=== PATIENT | female | born 1990 | race Caucasian/White ===

== ENCOUNTER 2018-05-07 17:20 | Emergency (ER) | payer MEDICAID, SELFPAY ==
[2018-05-07 17:57] VITALS: BP 145/84; PULSE 74; RESP 16; TEMP 37.1; O2SAT 100
--- NOTE | 2018-05-07 18:47 | W.ED.GENAD ---
Discharge Plan Disposition Patient Disposition: AGAINST MEDICAL ADVICE Condition: Fair Discharge Details Chief Complaint: EarProblem Clinical Impression: Otitis externa Reason For Visit: ?UTI Primary Care Provider: Unknown,Unknown ED Provider: Agnieszka Mitchell Home Meds and New Rx's Prescriptions: New ciprofloxacin HCl 500 mg tablet 500 mg PO BID Qty: 20 RF: 0 Discharge Instructions Instructions: Otitis Externa (ED), Otitis Media (ED) Additional Instructions: You have elected to leave the emergency department AGAINST MEDICAL ADVICE. The risks of doing so are and permanent disability. You may return to emergency department for further evaluation and treatment at any time if you change your mind. Please return immediately to the emergency department if you develop any new or worsening symptoms or if you become otherwise concerned. It is extremely important that make an appointment to see by your primary care doctor tomorrow. Discharge Data Discharge Date/Time-TO BE ENTERED AT DEPARTURE: 05/07/18 20:07 Medical Decision Making MDM Narrative Medical decision making narrative: Paul Silva is a 27 y/o woman without reported h/o major medical problems presenting to the emergency department with left ear pain that began two days ago, worse despite 3 doses of augmentin. On exam Pt is non-toxic appearing, there is no mengismus, no CN deficit, but purulent discharge from left ear canal with TTP over left TMJ and pre-auricular area. Pt denies any history of being immunocompromised, but significant worsening of pain with pain/tenderness over TMJ and left pre-auricular area concerning for possible malignant otitis externa. Cannot r/o perforated TM. Plan for screening labs, CT. Exam/hx not c/w meningitis, mastoiditis, ludwigs or impending airway compromise, sepsis. Discussed repeatedly with the patient that I had significant concerns for extension of infection, and that she may have malignant otitis externa or other deep space infection. Patient repeatedly refuses CT scan, stating that she cannot have IVs due to fear of needles. She reports that it was a huge ordeal when she had to have an IV for surgery in the past, and refuses any IV placement for labs or CT with IV contrast at this point. I had a lengthy discussion with patient regarding the risks of refusal including and permanent disability. Patient verbalizes understanding and continues to refuse IV placement. She repeatedly requests change in antibiotic along with her mother, who state that amoxicillin has never worked for her in the past and she has always required a different antibiotic to treat prior infections. I discussed that changing abx may not successfully treat infection. Pt also refused fingerstick to screen for DM. Plan to switch abx to cipro, will hold otic gtts as unclear if perforation at this time. Lengthy discussion with Pt that she may RTED at any time if she changes her mind, RTED precautions, and importance of outpt f/u tomorrow with PCP for re-check. Medical Records Medical records reviewed: Yes I reviewed the patient's medical records. HPI - General Adult General Mode of arrival: ambulatory. Date/Time Provider Initiated Documentation: 05/07/18 17:22. Limitations to Documentation: no limitations. Information obtained by: patient, family and RN notes reviewed. HPI Narrative: Paul Silva is a 27 y/o woman without reported h/o major medical problems presenting to the emergency department with left-sided ear pain. Pt reports that ear pain began 2 days ago and has been worsening. Yesterday she saw her PCP who prescribed PO augmentin and abx ear gtts. Pt has been using drops and taken 3 doses of augmentin and pain has been worsening. Pt reports pain in front of the left ear that is worse when she opens her jaw. Hearing is muffled in left ear. Also notes bump below left ear. She denies pain in her mouth, sore throat, trouble swallowing, change in voice, neck pain, headache, or fever. No other pain. No cough or SOB. Never had similar pain in the past. Her mother reports that she used to have ear infections years ago, and amoxicillin never worked for these. Pt and mom requesting change from augmentin to different antibiotic. Related Data Previous Rx's Medication Instructions Recorded ciprofloxacin HCl 500 mg PO BID #20 tab 05/07/18 Allergies Allergy/AdvReac Type Severity Reaction Status Date / Time No Known Allergies Allergy Unverified 05/07/18 18:01 General Stated Complaint: EarProblem STELLA: 3 Review of Systems Review of Systems Constitutional: denies fevers Eyes: denies eye pain ENT: denies dental pain, sore throat; reports left ear pain Cardiovascular: denies chest pain, edema Respiratory: denies SOB, cough GI: denies abdominal pain, vomiting, diarrhea : denies flank pain MSK: denies back pain, neck pain, arhtralgias, myalgias Skin: denies rash Neuro: denies headaches, lightheadedness, weakness PFSH Social History Smoking/Tobacco Use Status: Never Exam Narrative Exam Narrative: Constitutional: well and [id number], pleasant, conversing normally HENT: head atraumatic, normocephalic normal inspection, mucous membranes moist. no mastoid TTP b/l. left ear with discharge from canal, TM cannot be visualized. <1cm node inferior to left ear. TTP over left TMJ and preauricular region, reproduces pain. No trismus. Normal oropharynx, no intraoral lesions, no TTP of the gingiva, no tongue elevation. No facial edema, no fluctuance, no mass. Eyes: conjunctiva normal, sclera normal, pupils 3mm b/l, EOMI Neck: no stridor, normal painless ROM, trachea midline, no edema Resp: normal work of breathing, LCTAB Cardio: normal rate, normal rhythm, no murmur appreciated Back: normal inspection, no rash Skin: warm, dry, normal color, no rash Neuro: alert, not altered, grossly non-focal, normal tone, garnett feeder intact Psych: normal mood, normal affect, normal behavior Course Vital Signs Temperature 37.1 C 05/07/18 17:57 Pulse 74 05/07/18 17:57 Respiratory Rate 16 05/07/18 17:57 Blood Pressure 145/84 H 05/07/18 17:57 Pulse Oximetry 100 05/07/18 17:57 Temperature 37.1 C 05/07/18 17:57 Pulse 74 05/07/18 17:57 Respiratory Rate 16 05/07/18 17:57 Blood Pressure 145/84 H 05/07/18 17:57 Pulse Oximetry 100 05/07/18 17:57
--- NOTE | 2018-05-07 19:39 | ED.GENADUL_ITS ---
Discharge Plan Disposition Patient Disposition: AGAINST MEDICAL ADVICE Condition: Fair Discharge Details Chief Complaint: EarProblem Clinical Impression: Otitis externa Reason For Visit: ?UTI Primary Care Provider: Unknown,Unknown ED Provider: Agnieszka Mitchell Home Meds and New Rx's Prescriptions: New ciprofloxacin HCl 500 mg tablet 500 mg PO BID Qty: 20 RF: 0 Discharge Instructions Instructions: Otitis Externa (ED), Otitis Media (ED) Additional Instructions: You have elected to leave the emergency department AGAINST MEDICAL ADVICE. The risks of doing so are and permanent disability. You may return to emergency department for further evaluation and treatment at any time if you change your mind. Please return immediately to the emergency department if you develop any new or worsening symptoms or if you become otherwise concerned. It is extremely important that make an appointment to see by your primary care doctor tomorrow. Discharge Data Discharge Date/Time-TO BE ENTERED AT DEPARTURE: 05/07/18 20:07 Medical Decision Making MDM Narrative Medical decision making narrative: Paul Silva is a 27 y/o woman without reported h/o major medical problems presenting to the emergency department with left ear pain that began two days ago, worse despite 3 doses of augmentin. On exam Pt is non-toxic appearing, there is no mengismus, no CN deficit, but purulent discharge from left ear canal with TTP over left TMJ and pre-auricular area. Pt denies any history of being immunocompromised, but significant worsening of pain with pain/tenderness over TMJ and left pre-auricular area concerning for possible malignant otitis externa. Cannot r/o perforated TM. Plan for screening labs, CT. Exam/hx not c/w meningitis, mastoiditis, ludwigs or impending airway compromise, sepsis. Discussed repeatedly with the patient that I had significant concerns for extension of infection, and that she may have malignant otitis externa or other deep space infection. Patient repeatedly refuses CT scan, stating that she cannot have IVs due to fear of needles. She reports that it was a huge ordeal when she had to have an IV for surgery in the past, and refuses any IV placement for labs or CT with IV contrast at this point. I had a lengthy discussion with patient regarding the risks of refusal including and permanent disability. Patient verbalizes understanding and continues to refuse IV placement. She repeatedly requests change in antibiotic along with her mother, who state that amoxicillin has never worked for her in the past and she has always required a different antibiotic to treat prior infections. I discussed that changing abx may not successfully treat infection. Pt also refused fingerstick to screen for DM. Plan to switch abx to cipro, will hold otic gtts as unclear if perforation at this time. Lengthy discussion with Pt that she may RTED at any time if she changes her mind, RTED precautions, and importance of outpt f/u tomorrow with PCP for re-check. Medical Records Medical records reviewed: Yes I reviewed the patient's medical records. HPI - General Adult General Mode of arrival: ambulatory . Date/Time Provider Initiated Documentation: 05/07/18 17:22 . Limitations to Documentation: no limitations . Information obtained by: patient, family and RN notes reviewed . HPI Narrative: Paul Silva is a 27 y/o woman without reported h/o major medical problems presenting to the emergency department with left-sided ear pain. Pt reports that ear pain began 2 days ago and has been worsening. Yesterday she saw her PCP who prescribed PO augmentin and abx ear gtts. Pt has been using drops and taken 3 doses of augmentin and pain has been worsening. Pt reports pain in front of the left ear that is worse when she opens her jaw. Hearing is muffled in left ear. Also notes bump below left ear. She denies pain in her mouth, sore throat, trouble swallowing, change in voice, neck pain, headache, or fever. No other pain. No cough or SOB. Never had similar pain in the past. Her mother reports that she used to have ear infections years ago, and amoxicillin never worked for these. Pt and mom requesting change from augmentin to different antibiotic. Related Data Previous Rx's Medication Instructions Recorded ciprofloxacin HCl 500 mg PO BID #20 tab 05/07/18 Allergies Allergy/AdvReac Type Severity Reaction Status Date / Time No Known Allergies Allergy Unverified 05/07/18 18:01 General Stated Complaint: EarProblem STELLA: 3 Review of Systems Review of Systems Constitutional: denies fevers Eyes: denies eye pain ENT: denies dental pain, sore throat; reports left ear pain Cardiovascular: denies chest pain, edema Respiratory: denies SOB, cough GI: denies abdominal pain, vomiting, diarrhea : denies flank pain MSK: denies back pain, neck pain, arhtralgias, myalgias Skin: denies rash Neuro: denies headaches, lightheadedness, weakness PFSH Social History Smoking/Tobacco Use Status: Never Exam Narrative Exam Narrative: Constitutional: well and [id number], pleasant, conversing normally HENT: head atraumatic, normocephalic normal inspection, mucous membranes moist. no mastoid TTP b/l. left ear with discharge from canal, TM cannot be visualized. <1cm node inferior to left ear. TTP over left TMJ and preauricular region, reproduces pain. No trismus. Normal oropharynx, no intraoral lesions, no TTP of the gingiva, no tongue elevation. No facial edema, no fluctuance, no mass. 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
[2018-05-07] MEDS: Ciprofloxacin 500 MG TAB PO (20:12)
== END 2018-05-07 20:07 | disposition left against medical advice (07) ==
PROVIDERS: Emergency Provider Student in an Organized Health Care Education/Training Program
DX: H60.392 Other infective otitis externa, left ear (principal); Z53.29 Procedure and treatment not carried out because of patient's decision for other reasons
CPT/HCPCS: 99283

== ENCOUNTER 2018-06-18 10:40 | Outpatient (REF) | payer MEDICAID, SELFPAY ==
[2018-06-19 10:47] LABS: Campylobacter PCR SEE COMMENTS; Salmonella PCR SEE COMMENTS; Shiga Toxin PCR SEE COMMENTS; Shigella/Enteroinvasive Ecoli SEE COMMENTS; Specimen Description Feces
[2018-06-19 14:03] LABS: Result Positive
== END 2018-06-18 11:00 ==
LOC: LBN 10:40
PROVIDERS: Visit Provider Colon & Rectal Surgery
DX: R19.7 Diarrhea, unspecified (principal)
CPT/HCPCS: 87505; 87324; 87798

== ENCOUNTER 2019-05-09 11:16 | Outpatient (REF) | payer MEDICAID, SELFPAY ==
[2019-05-11 11:26] LABS: Campylobacter PCR SEE COMMENTS; Salmonella PCR SEE COMMENTS; Shiga Toxin PCR SEE COMMENTS; Shigella/Enteroinvasive Ecoli SEE COMMENTS
== END 2019-05-09 11:36 ==
LOC: NCHCN 11:16
PROVIDERS: PCP Nurse Practitioner Family; Visit Provider Nurse Practitioner Family
DX: R10.9 Unspecified abdominal pain (principal)
CPT/HCPCS: 87505; 87177; 87324

== ENCOUNTER 2019-05-10 00:52 | Emergency (ER) | payer MEDICAID, SELFPAY ==
[2019-05-10 00:55] VITALS: BP 114/76; PULSE 87; RESP 18; TEMP 36.3; O2SAT 97
--- NOTE | 2019-05-10 01:30 | ED.GENADUL_ITS ---
Discharge Plan Disposition Patient Disposition: HOME Condition: Good Discharge Details Chief Complaint: Nausea/Vomit/Diar Clinical Impression: Diarrhea, Abdominal cramping Primary Care Provider: Nya Washington ED Provider: Luis Miguel Melissa Home Meds and New Rx's Prescriptions: No Action multivitamin [Multiple Vitamins] Tablet 1 tab PO DAILY RF: 0 biotin 10,000 mcg Capsule 10,000 mcg PO DAILY RF: 0 Discharge Instructions Instructions: Clostridium Difficile Infection (ED) Additional Instructions: Please disregard these discharge instructions as they are incorrect: You have a C. difficile infection. We are still waiting on the results of the other stool studies which will take a few days to come back. Please take the antibiotic as directed. Please make sure to take an [id number] probiotic to help with the diarrhea. If your symptoms worsen or continue please return for reassessment and potential CT scan that we have discussed. Please wash your hands thoroughly. If you notice any worsening of your symptoms, or any new symptoms such as vomiting, diarrhea, fever, chills, shortness of breath, chest pain, numbness, weakness, or fainting , please return immediately to the emergency department for reevaluation. Please follow up with your primary care provider as soon as possible for reassessment and reevaluation. As always, it was a pleasure participating in your medical care today. Referrals: Nya Washington, [employer]LECT[employer]PER [Primary Care Provider] - Discharge Data Discharge Date/Time-TO BE ENTERED AT DEPARTURE: 05/10/19 01:39 Medical Decision Making This is a pleasant 28-year-old female who presents today for evaluation of of diarrhea and abdominal cramping. She was recently diagnosed with ringworm which is since resolved, after seeing her PCP at that time she shortly thereafter developed mild nausea vomiting and mucus-like diarrhea which she states was identical to her last C. difficile infection in the past. She has been able to tolerate food and drink by mouth, she denies any hematochezia melena or acholic stool. Vomiting is very minimal and well-controlled. She is adamant today. Physical exam demonstrates diffuse crampiness throughout. Currently her pain is very minimal. No pain at McBurney's point, no clinical evidence of an acute surgical abdomen. Initial review of the lab results showed evidence of positive C. difficile under miscellaneous testing, however this was a misinterpretation and the positive C. difficile in the pending stool cultures are actually from 2018 for the C. difficile. The true C. difficile results are actually negative on this current episode. At the time of the patient's initial assessment disposition we did discuss labs and CT imaging, and at this time the patient would like to hold off on any CT scans of her abdomen and blood work. She states that she clinically feels fine at this time, but does admit to return if her symptoms continue or worsen. Dose of oral vancomycin was given. Upon repeat reviews of the labs after disposition it was notably more clear at that time that the actual current GI specimen from 05/09/2019 was actually negative. The patient was contacted, the case was again discussed with her. All questions were answered. Recommended holding off on the oral vancomycin. Recommended continuation of the probiotic. I again offered that the patient could return for CT imaging and further evaluation and she again states that she feels very well at this time does not want any additional imaging or work-up. I did state that I would personally call her on Saturday for reassessment and to see if the remaining stool studies have returned. Additionally at this time with no blood in her stool, foreign travel, recent antibiotic use, and a benign appearing abdomen on exam signs and symptoms are clinically inconsistent with her current life-threatening diarrhea abnormality, toxic megacolon, or other concerning life-threatening event. She states that she has clear understanding that if she has return or worsening of her symptoms she will return for immediate assessment evaluation. I have extensively reviewed the treatment plan and discharge instructions with the patient. I have addressed all patient concerns at this time. The patient was made aware of what symptoms to monitor for that would warrant a return to the emergency department. Discussed the plan with the patient, they demonstrate verbal understanding and agreement with our assessment and plan at this time. HPI General Date/Time Provider Initiated Documentation: 05/10/19 00:58 . 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 difficile, who presents today for evaluation of diarrhea and suspected C. difficile infection. Patient states that around a week ago she was suffering from a mild rash, and went to her PCPs office for evaluation. She was diagnosed with ringworm. She was not started on antibiotics. Shortly after that she developed nausea, occasional vomiting, and mucus-like diarrhea. She states that the symptoms were identical to a C. difficile infection that she had in the past, she again visited her PCP who ordered outpatient stool studies. The samples were dropped off this morning at [facility]. She presents today for continued pain and symptomatology. She denies any fever or chills. She denies any hematochezia melena or acholic stool. She denies any recent foreign travel, or recent antibiotic use. Symptoms are worsened with abdominal palpation, they come and go in severity and presence. Patient denies any other complaints at this time. No other modifying factors. Related Data Home Medications Medication Instructions Recorded Confirmed biotin 10,000 mcg PO DAILY 05/10/19 05/10/19 multivitamin [Multiple Vitamins] 1 tab PO DAILY 05/10/19 05/10/19 Allergies Allergy/AdvReac Type Severity Reaction Status Date / Time No Known Allergies Allergy Unverified 05/10/19 00:58 General Stated Complaint: Nausea/Vomit/Diar STELLA: 3 Review of Systems Review of Systems ROS Unobtainable: All systems reviewed & are unremarkable except as noted in HPI and below PFS Medical History (Updated 05/10/19 @ 01:06 by Pushpa Daniels) C. difficile diarrhea (Acute) Perianal abscess (Acute) Social History Smoking/Tobacco Use Status: Never Alcohol Intake: current Alcohol Intake frequency: a few times a month Drug use: Socially Substance use type: marijuana Do you feel safe in your relationship?: Yes Exam Narrative Exam Narrative: 1.Const: Well-nourished, Well-developed, appearing stated age 2.Eyes: PERRL, no conjunctival injection, and symmetrical lids. 3.ENT: Atraumatic external nose and ears. Moist MM. Neck: Symmetric, trachea midline, No thyromegaly. 4.CVS: +S1/S2, No murmurs or gallops. Peripheral pulses 2+ and equal in all extremities. Brisk capillary refill in all extremities. 5.RESP: Unlabored respiratory effort. Clear to auscultation bilaterally. No wheezes rales or rhonchi 6.GI: Soft,Nondistended, mild diffuse tenderness throughout. No focal tenderness. No pain at McBurney's point. no hepatosplenomegaly. No guarding or rebound. Negative obturator and psoas sign. No flank or CVA tenderness. 7.MSK: Normocephalic/Atraumatic, Extremities w/o deformity or ttp No cyanosis or clubbing, Normal movement of all extremities 8.Skin: Warm, Dry. No rashes or lesions. 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 Sensation grossly intact, no focal neurologic deficits. 10.Psych: (AAO) x3. Appropriate mood and affect Course Vital Signs Vital signs: Vital Signs Temperature 36.3 C L 05/10/19 00:55 Pulse 87 05/10/19 00:55 Respiratory Rate 18 05/10/19 00:55 Blood Pressure 114/76 05/10/19 00:55 Pulse Oximetry 97 05/10/19 00:55 Temperature 36.3 C L 05/10/19 00:55 Temperature Source Skin 05/10/19 00:55 Pulse 87 05/10/19 00:55 Respiratory Rate 18 05/10/19 00:55 Respiratory Effort Non-Labored 05/10/19 01:02 Blood Pressure 114/76 05/10/19 00:55 Pulse Oximetry 97 05/10/19 00:55 Pain Level 3 05/10/19 00:55
[2019-05-10] MEDS: Vancomycin 125 MG CAP PO (01:36)
== END 2019-05-10 01:39 | disposition home or self-care (01) ==
PROVIDERS: Emergency Provider Student in an Organized Health Care Education/Training Program; PCP Nurse Practitioner Family
DX: R19.7 Diarrhea, unspecified (principal); R10.9 Unspecified abdominal pain
CPT/HCPCS: 99283

== ENCOUNTER 2019-08-22 03:17 | Emergency (ER) | payer MEDICAID, SELFPAY ==
[2019-08-22 03:22] VITALS: BP 149/102; PULSE 72; RESP 16; O2SAT 100
--- NOTE | 2019-08-22 03:29 | W.ED.GENAD ---
Discharge Plan Disposition Patient Disposition: HOME Condition: Stable Discharge Details Chief Complaint: Abd Prob Clinical Impression: Nausea & vomiting Primary Care Provider: Nya Washington ED Provider: Hany Arizmendi Home Meds and New Rx's Prescriptions: New ondansetron 4 mg tablet,disintegrating 4 mg PO Q8H PRN (Reason: nausea and vomiting) Qty: 30 RF: 0 Continued multivitamin [Multiple Vitamins] Tablet 1 tab PO DAILY RF: 0 biotin 10,000 mcg Capsule 10,000 mcg PO DAILY RF: 0 Discharge Instructions Instructions: Acute Nausea and Vomiting (ED) Additional Instructions: follow up with your primary care provider within 1-2 weeks if symptoms continue if persistent vomit, you feel more ill or have worsening pain return ot the emergency department Medical Decision Making 29 yo female with hx of c diff years ago otherwise no chronic medical problems comes in with abdominal pain, n/v and soft stools since 8pm. She denies fevers, recent abx and no recent travel. She does use marijuana otherwise no alcohol or drug use. she denies any new foods or meds. She has generalized abdominal tenderness without guarding on exam in all quadrants. Will obtain lab work and imaging to eval for possible sbo and pancreatitis among other pathology. She has no chest pain or presure and symptoms seem more GI related. She states stools are not watery just a little soft so doubt c diff and she state her stools don't feel like they did when she had c diff. pt's labs and imaging shows no acute pathology and no diarrhea here. On reassesment is laying in bed in no dsitress with no abdominal tenderness, still has nausea. Feel she is stable for d/c and advised f/u with pcp and return precautions given Differential Diagnosis Differential Diagnosis: gastroenteritis, sbo, cholecystitis, pancreatitis Imaging Data Radiologic Study: Attestation: I personally reviewed and interpreted this imaging study as follows: Imaging: CT Scan Radiologist's impression: no acute findings Lab Data Lab results reviewed: Yes I reviewed the patient's lab results. HPI General Mode of arrival: ambulatory. Date/Time Provider Initiated Documentation: 08/22/19 03:18. Limitations to Documentation: no limitations. Information obtained by: patient. History of Present Illness 29 year old F presents to the emergency department with the chief complaint of nausea and vomit, described as moderate, Patient started experiencing this hour(s) (7) and it has been constant. No relieving factors improve symptom(s), No exacerbating factors reported . Patient did receive the following treatments prior to arrival, none Related Data Home Medications Medication Instructions Recorded Confirmed biotin 10,000 mcg PO DAILY 05/10/19 05/10/19 multivitamin [Multiple Vitamins] 1 tab PO DAILY 05/10/19 05/10/19 ondansetron 4 mg PO Q8H PRN #30 tab 08/22/19 Previous Rx's Medication Instructions Recorded ondansetron 4 mg PO Q8H PRN #30 tab 08/22/19 Allergies Allergy/AdvReac Type Severity Reaction Status Date / Time No Known Allergies Allergy Unverified 05/10/19 00:58 General Stated Complaint: Abd Prob STELLA: 3 Review of Systems All systems reviewed & are unremarkable except as noted in HPI and below Constitutional Constitutional: Denies chills, Denies fever(s) and Denies weakness Cardiovascular Cardiovascular: Denies chest pain and Denies dyspnea Respiratory Respiratory: Denies cough and Denies dyspnea Musculoskeletal Musculoskeletal: Denies joint swelling Neurologic Neurologic: Denies weakness [facility] Medical History (Updated 05/10/19 @ 01:06 by Pushpa Daniels) C. difficile diarrhea (Acute) Perianal abscess (Acute) Social History Smoking/Tobacco Use Status: Never Alcohol Intake: current Alcohol Intake frequency: a few times a month Drug use: Socially Substance use type: marijuana Do you feel safe in your relationship?: Yes Exam Const General: no acute distress Orientation: alert HENMT Head: normal to inspection Ears: external ears normal General nose exam: external nose normal Mouth: moist mucous membranes Eyes General: appearance normal, both eyes and all related structures Neck Neck: normal visual inspection Resp Effort & Inspection: normal respiratory effort and able to speak in complete sentences Cardio Rate: regular rate GI Palpation: soft Skin General skin exam: no rashes or lesions noted Neuro General: alert and oriented x3 Extrem General: normal to inspection Psych Mental Status: mental status grossly normal Course Vital Signs Vital signs: Vital Signs Pulse 72 08/22/19 03:22 Respiratory Rate 16 08/22/19 03:22 Blood Pressure 149/102 H 08/22/19 03:22 Pulse Oximetry 100 08/22/19 03:22 Pulse 72 08/22/19 03:22 Respiratory Rate 16 08/22/19 03:22 Respiratory Effort 08/22/19 03:23 Blood Pressure 149/102 H 08/22/19 03:22 Pulse Oximetry 100 08/22/19 03:22 Oxygen Delivery Method Room Air 08/22/19 03:22 Oxygen Flow Rate 0 08/22/19 03:22 Pain Level 3 08/22/19 03:22
[2019-08-22] MEDS: Prochlorperazine 10 MG/2 ML VIAL IVP (03:43)
[2019-08-22] MEDS: Normal Saline Flush 10 ML SYR IVP (03:43)
[2019-08-22] MEDS: Ketorolac 15 MG/ML VIAL IVP (03:43)
[2019-08-22] MEDS: Normal Saline 1,000 ML 1000 ML IV (03:43)
[2019-08-22 03:57] LABS: Abs Immature Grans 0.03 k/cumm (0.0-0.09); Absolute Basophil Count 0.06 k/cumm (0.0-0.2); Absolute Eosinophil Count 0.52 k/cumm (0.0-0.7); Absolute Lymphocyte Count 3.95 k/cumm (1.2-3.4); Absolute Monocyte Count 0.64 k/cumm (0.11-0.7); Absolute Neutrophil Count 6.15 k/cumm (1.2-6.7); Basophils % 0.5; Eosinophils % 4.6; HCT 44.5 % (36.0-46.0); HGB 15.1 g/dL (12.0-15.5); Immature Grans % 0.3; Lymphocytes % 34.8; Mean Corp. HGB Concentration 33.9 g/dL (32.0-36.0); Mean Corpuscular Hemoglobin 30.9 pg (27.0-33.0); Mean Corpuscular Volume 91.2 fL (80-95); Mean Platelet Volume 9.8 fL (8.0-11.0); Monocytes % 5.6; Neutrophils % 54.2; Platelet Count 349 x1000/uL (130-400); RBC 4.88 m/cumm (4.00-5.20); White Blood Cell Count 11.35 k/cumm (4.4-10.8)
[2019-08-22] MEDS: Omnipaque 350 MG/ML 100 ML BTL IJ (04:03)
[2019-08-22 04:08] LABS: Lipase 170 U/L (73-393)
--- NOTE | 2019-08-22 04:08 | DI.CT_ITS ---
EXAM: CT ABDOMEN PELVIS W CLINICAL HISTORY: abdominal pain, nausea and vomiting TECHNIQUE: Imaging Protocol: Axial computed tomography images with coronal and sagittal reformatted images were created and reviewed CONTRAST MATERIAL: Intravenous: Omnipaque 350 Contrast volume:97 mL contrast route:IV - Oral: No COMPARISON: No exams were available for comparison FINDINGS: ABDOMEN: Lung Bases: Normal where visualized. Liver: Normal density. No measurable mass. Gallbladder and biliary tract: No radiodense calculus or dilation. Pancreas: Normal density, no abnormal calcifications or inflammatory process. Spleen: Normal. Kidneys: Normal size, contour and axis. No radiodense stones or obstructive uropathy. No masses seen. Adrenal glands: No masses seen. Abdominal Aorta: Abdominal portion non-dilated. PELVIS: Bladder: Symmetric distention, no gross wall thickening. Bowel: No obstruction or bowel wall thickening. Peritoneal cavity: No ascites, collection or mesenteric inflammatory response. Bones: Within normal limits. Reproductive organs: Within normal limits. Lymph nodes: Unremarkable. Impression: No acute abnormality. DATA REPOSITORY: All CT scans at this facility are submitted to the National Radiology Data Registry (NRDR) Dose Index Registry (DIR) with the [employer] ([employer]). RADIATION OPTIMIZATION: All CT scans at this facility use at least one of these dose optimization te chniques: automated exposure control; mA and/or kV adjustment per patient size (includes targeted exa ms where dose is matched to clinical indication); or iterative reconstruction.
[2019-08-22 04:11] LABS: ALT 26 U/L (14-59); AST 14 U/L (15-37); Alkaline Phosphatase 64 U/L (46-116); Anion Gap 11.4 mmol/L (3-11); BUN 11 mg/dL (7-18); Bilirubin, Total 0.4 mg/dL (0.2-1.0); CO2 26.6 mmol/L (21.0-32.0); CREATININE 0.78 mg/dL (0.55-1.02); Calcium 9.1 mg/dL (8.5-10.1); Chloride 106 mmol/L (98-107); Glucose 133 mg/dL (74-106); HCG Qual (Serum) Negative; Magnesium 1.8 mg/dL (1.8-2.4); Potassium 3.6 mmol/L (3.5-5.1); Sodium 144 mmol/L (136-145); Total Protein 7.8 g/dL (6.4-8.2)
--- NOTE | 2019-08-22 04:32 | DI.VRAD_ITS ---
PROCEDURE INFORMATION: Exam: CT Abdomen And Pelvis With Contrast Exam date and time: 08/22/2019 4:01 AM Age: 29 years old Clinical indication: Abdominal pain; Generalized; Prior surgery; Surgery date: 6+ months; Surgery type: Perianal fistulotomy a few years ago TECHNIQUE: Imaging protocol: Computed tomography of the abdomen and pelvis with intravenous contrast. Radiation optimization: All CT scans at this facility use at least one of these dose optimization techniques: automated exposure control; mA and/or kV adjustment per patient size (includes targeted exams where dose is matched to clinical indication); or iterative reconstruction. Contrast material: [id number]; Contrast volume: 97 ml; Contrast route: IV LT AC 20G; COMPARISON: US OB TRANSVAGINAL 09/12/2017 3:39 PM FINDINGS: Liver: Normal. No mass. Gallbladder and bile ducts: Normal. No calcified stones. No ductal dilation. Pancreas: Normal. No ductal dilation. Spleen: Normal. No splenomegaly. Adrenals: Normal. No mass. Kidneys and ureters: Normal. No hydronephrosis. Stomach and bowel: Unremarkable. No obstruction. No mucosal thickening. Appendix: No evidence of appendicitis. Intraperitoneal space: Unremarkable. No free air. No significant fluid collection. Vasculature: Unremarkable. No abdominal aortic aneurysm. Lymph nodes: Unremarkable. No enlarged lymph nodes. Bladder: Unremarkable as visualized. Reproductive: Unremarkable as visualized. Bones/joints: Unremarkable. No acute fracture. Soft tissues: Unremarkable. IMPRESSION: No acute findings. Dictated and Authenticated by: Hany Ballesteros MD. Ordering:SOLO Leach MD
[2019-08-22] MEDS: Ondansetron 4 MG/2 ML VIAL IVP (04:43)
[2019-08-22 04:46] VITALS: BP 122/72; PULSE 68; RESP 16; O2SAT 96
== END 2019-08-22 04:55 | disposition home or self-care (01) ==
PROVIDERS: Emergency Provider Emergency Medicine; PCP Nurse Practitioner Family
DX: R11.2 Nausea with vomiting, unspecified (principal); R10.9 Unspecified abdominal pain
CPT/HCPCS: 80053; 81025; 83690; 96361; 96374; 96375; 99284; 74177; 83735; 84703; 85025; J0780; J1885; J2405; J3490